=== PATIENT | male | born 1965 | race Caucasian/White ===

== ENCOUNTER 2018-12-15 18:09 | Emergency (ER) | payer BC ==
[~2018-12-15] VITALS: Ht 170.2 cm; Wt 79.5 kg
[~2018-12-15 18:09] MED LIST: ASPIRIN 81M81 MG/TA2 PO; FLOMAX 0.40.4 MG/CAP PO; LORTAB 7.5/5001 TAB PO; PREVACID 15MG15 M1 PO; ZOCOR 20MG20 MG PO
[2018-12-15 18:14] VITALS: BP 154/83; TEMP 97.7
[2018-12-15] MEDS ORDERED: XELPROS2.5 ML OP (18:32)
[2018-12-15 18:45] LABS: BASO % 0.3 % (0.0-2.0); EOS % 0.2 % (0-4.0); GRAN # 12.6 (1.4-6.5); GRAN % 85.6 % (42.2-75.2); HEMATOCRIT 45.5 % (42.0-52.0); HEMOGLOBIN 15.8 g/dl (13.5-18.0); LYMPH # 1.2 (1.2-3.4); LYMPH % 8.1 % (20.0-51.0); MEAN CELL VOLUME 87 fl (80.0-100.0); MEAN CORPUSCULAR HEMOGLOBIN 30 pg (27.0-31.0); MEAN CORPUSCULAR HGB CONC 35 g/dl (33.0-37.0); MEAN PLATELET VOLUME 8.2 fl (7.4-10.4); MONO # 0.8 (0.1-0.6); MONO % 5.4 % (1.7-9.3); PLATELET COUNT 302 K/mm3 (130-400); RED BLOOD COUNT 5.21 M/mm3 (4.20-5.60); REDCELL DISTRIBUTION WIDTH-CV 12.3 % (11.5-14.5)
[2018-12-15 18:48] LABS: ALANINE AMINOTRANSFERASE 17 U/L (21-72); ALBUMIN 4.8 gm/dL (3.5-5.0); ALKALINE PHOSPHATASE 70 U/L (50-136); ANION GAP 13 mmol/L (7-16); AST,SGOT 23 U/L (15-37); BILIRUBIN,TOTAL 0.7 mg/dL (0.0-1.0); BLOOD UREA NITROGEN 12 mg/dL (9-20); CALCIUM 9.7 mg/dL (8.4-10.2); CARBON DIOXIDE 25 mmol/L (22-30); CHLORIDE 104 mmol/L (98-107); CREATININE, serum 1.08 (0.66-1.25); GLUCOSE 107 mg/dL (74-106); LIPASE 110 U/L (23-300); POTASSIUM 4.3 mmol/L (3.4-5.0); SODIUM 142 mmol/L (137-145); TOTAL PROTEIN 7.5 gm/dL (6.4-8.2)
[2018-12-15] MEDS ORDERED: LIPITOR 40MG TA40 MG PO (18:59)
[2018-12-15 19:01] LABS: C-REACTIVE PROTEIN < 0.5 mg/dL (0.0-0.9)
[2018-12-15 19:50] LABS: COLLECTION METHOD CLEAN CATCH
[2018-12-15 20:08] LABS: MUCOUS Present /lpf; PH 5 (5-8); SQUAMOUS EPITHELIAL None Seen /hpf; URINE APPEARANCE Clear; URINE BACTERIA None Seen /hpf; URINE BILIRUBIN Negative (NEGATIVE); URINE BLOOD Negative (NEGATIVE); URINE COLOR Yellow; URINE GLUCOSE Negative (NEGATIVE); URINE KETONE 1+ (NEGATIVE); URINE LEUKOCYTE ESTERASE Negative (NEGATIVE); URINE NITRATE Negative (NEGATIVE); URINE PROTEIN(semi-quant) Negative (NEGATIVE); URINE RBC 0-2 /hpf; URINE UROBILINOGEN Negative (NEGATIVE)
[2018-12-15] MEDS ORDERED: ZOFRAN 4MG T4 MG/TAB PO (21:05)
[2018-12-15] MEDS ORDERED: NORCO 325 MG-51 TAB PO (21:05)
[2018-12-15 21:35] VITALS: PULSE 62
== END 2018-12-15 21:35 | disposition home or self-care (01) ==
LOC: COL.ER 18:09
PROVIDERS: Emergency Medicine
DX: R10.31 Right lower quadrant pain (principal); R11.2 Nausea with vomiting, unspecified; E78.5 Hyperlipidemia, unspecified; F17.220 Nicotine dependence, chewing tobacco, uncomplicated; Z98.890 Other specified postprocedural states
CPT/HCPCS: J2270; J2405; J7030; Q9967